=== PATIENT | male | born 1995 | race African-American/Black ===

== ENCOUNTER 2022-01-23 19:09 | Emergency (ER) | payer OTHER ==
[2022-01-23 19:17] VITALS: BP 140/89
--- NOTE | 2022-01-23 19:26 | ED Physician Documentation ---
History of Present Illness - Stated complaint Stated Complaint: FINGER HANGING OFF - Chief complaint Chief Complaint: Laceration - Additonal information Additional information: 26-year-old male presents emergency department for evaluation of a left partial index fingertip amputation sustained when cutting sweet potatoes at home. Tetanus is up-to-date. He is right-hand dominant. Review of Systems Constitutional: reports: Reviewed and negative Cardiac: reports: Reviewed and negative Respiratory: reports: Reviewed and negative Skin: reports: Laceration (s) PD PAST MEDICAL HISTORY - Allergies Allergies/Adverse Reactions: Allergies Allergy/AdvReac Type Severity Reaction Status Date / Time No Known Drug Allergies Allergy Verified 01/23/22 19:17 PD ED PE EXPANDED - Extremities Extremities: Left finger(s) (Partial medial side distal left index finger laceration. Patient is able to flex and extend at DIP joint. The laceration and skin flap is bleeding) Results - Vitals Vitals: Vital Signs - 24 hr 01/23/22 19:13 Temperature 36.7 C Heart Rate 72 Respiratory 14 Rate Blood Pressure 140/89 H O2 Saturation 97 Oxygen O2 Source Room air Procedures - Laceration (location) left index finger Length in cm: 4 Wound type: Curved, Into muscle, Clean Neurovascular status: Sensory intact, Motor intact Tendon involvement: Tendon intact Anesthesia: Marcaine 0.5% Wound preparation: Chlorhexadine, Irrigated copiously NS Skin layer closure: Nylon, Interrupted, Size #-0 - enter number (5), Sutures - enter # (11) Other: Patient tolerated well, No complications, Neurovascular intact, Tetanus UTD PD MEDICAL DECISION MAKING - ED course Complexity details: considered differential, d/w patient ED course: 26-year-old male presents emergency department for evaluation of a partial left index finger tip laceration sustained when using a knife to cut sweet potatoes. His tetanus is up-to-date. This partial flap amputation was closed utilizing 11 sutures. Discussed with patient that the flap may not survive but with time the wound will heal underneath. Routine wound care emergent return precautions were discussed for concerns of infection. Departure - Departure Disposition: 01 Home, Self Care Clinical Impression: Avulsion, finger tip Qualifiers: Encounter type: initial encounter Qualified Code(s): S61.209A - Unspecified open wound of unspecified finger without damage to nail, initial encounter Condition: Stable Record reviewed to determine appropriate education?: Yes Instructions: ED Laceration All Comments: Your suture(s) should be removed in 10-12 days. In 24 hours you may remove the dressing wash gently with warm soap and water, apply any antibiotic ointment and a simple bandage. Your tetanus is up-to-date. The flap may not survive. However by itching it in place we have given it the opportunity to heal. If the flap fails it will heal internally over a few weeks Please attempt to keep your wound clean and dry. Do not submerge it in dirty dishwater or bath water. Return to the emergency department if you have any concerns of infection such as redness, fevers milky drainage increased pain.
[2022-01-23] MEDS ORDERED: BACITRACIN ZINC OINT 1 PACKET TOP STA (19:56)
[2022-01-23] MEDS ORDERED: BACITRACIN ZINC OINT 1 PACKET TOP ONE (20:07)
== END 2022-01-23 20:11 | disposition home or self-care (01) ==
LOC: ED 19:09
DX: S61.211A Laceration without foreign body of left index finger without damage to nail, initial encounter (principal); W26.0XXA Contact with knife, initial encounter; Y93.G1 Activity, food preparation and clean up
CPT/HCPCS: 12002; 99282; A9270